=== PATIENT | male | born 2000 | race Caucasian/White ===

== ENCOUNTER → 2019-05-27 | Outpatient (CLI) | payer OTHER | LOC: M.ULTRA 05-26 08:00 | DX: K76.9 Liver disease, unspecified (principal); R10.12 Left upper quadrant pain; R10.13 Epigastric pain ==

== ENCOUNTER → 2019-06-10 | Outpatient (CLI) | payer OTHER ==
[2019-06-10 13:40] LABS: CREATININE 0.8 mg/dL (0.6-1.3)
== END ==
LOC: M.CT 12:48
PROVIDERS: Family Medicine
DX: K76.9 Liver disease, unspecified (principal); R93.5 Abnormal findings on diagnostic imaging of other abdominal regions, including retroperitoneum

== ENCOUNTER 2020-05-01 23:40 | Observation (INO) | payer OTHER ==
[~2020-05-01] VITALS: Ht 149.9 cm; Wt 58.1 kg
--- NOTE | ~2020-05-01 | OP ---
[address] [address] OPERATIVE REPORT Name: FABIEN KNAPP Room: [address] Gurinder Pearl#: [id number] Admission: 05/02/20 Attend Phys: Rich Melissa DO Discharge: Date of : 99 Report #: [id number] THIS REPORT FOR: //name// cc: Fantasma Aceves Vincent R. DO ~ THIS REPORT FOR: //name// CC: Rich Aceves DICTATED BY: Lilian Chacon DO DATE OF SERVICE: 05/02/2020 Lilian Chacon DO, PGY3 dictating for Rich Melissa DO. PREOPERATIVE DIAGNOSIS: Acute appendicitis. POSTOPERATIVE DIAGNOSIS: Acute appendicitis. PRIMARY SURGEON: Rich Melissa DO. CORPORATE LIBRARIAN: Lilian Chacon DO, PGY3. PROCEDURE PERFORMED: Laparoscopic appendectomy. ANESTHESIA: General and local. ESTIMATED BLOOD LOSS: 20. SPECIMEN: Appendix. COMPLICATIONS: None. INDICATIONS FOR PROCEDURE: The patient is a pleasant 19-year-old male that presented to the Emergency Department with acute onset periumbilical and right lower quadrant abdominal pain for several hours prior to presentation. Workup in the Emergency Department included a CT scan, which was positive for acute appendicitis. He also had a leukocytosis. He is afebrile and vitals were all within normal limits. It was recommended that he undergo laparoscopic appendectomy. The procedure, risks, benefits, possible complications to include bleeding, infection, injury to surrounding structures, need for open procedure, need for additional surgery, risk of anesthesia, and other risks of surgery were discussed with the patient in great detail. He voiced complete understanding and wished to proceed with surgery. [address] [address] OPERATIVE REPORT Name: FABIEN KNAPP Room: [address] Gurinder Pearl#: [id number] Admission: 05/02/20 Attend Phys: Rich Melissa, DO Discharge: Date of : 99 Report #: [id number] DESCRIPTION OF PROCEDURE: Informed consent was obtained. The patient was taken to the operating room and placed supine on the operating room table. General endotracheal anesthesia was induced without difficulty. SCDs were placed on bilateral lower extremities. Preoperative antibiotics were given. The abdomen was prepped and draped in standard sterile fashion. Timeout was performed to ensure correct patient and procedure. We began by making a vertical supraumbilical incision using a #11 blade scalpel. Incision was carried down through the subcutaneous tissues using a combination of blunt dissection and electrocautery. [employer] was used to assist in our dissection down to the level of fascia. Fascia was scored with electrocautery. Fascia was then elevated between 2 Kochers and further incised. The peritoneum was entered bluntly using hemostat. 0 Vicryl stay sutures were placed on either side of the fascial opening in a wayeee-pa-uyoue fashion. A 5 mm Cam trocar was inserted through the fascial opening. Abdomen was insufflated without difficulty. Laparoscopic camera was inserted and a sweep of the anterior abdominal contents was performed. There were no obvious abnormalities on our initial sweep of the abdominal contents. The patient was placed in the Trendelenburg position with the left side down. This still did not afford us a visual of the appendix. A suprapubic 5 mm trocar was inserted under direct visualization. A [place] was inserted and the right lower quadrant was explored. The appendix was in a retrocecal position. Once it was identified, it did appear to be acutely inflamed. Once the appendix was visualized, our left lower quadrant 12 mm trocar was then inserted under direct visualization. The Harmonic scalpel was used to come across the mesoappendix until we reached the base of the appendix. Once we reached the base of the appendix, a 45 mm purple load on the Endo-ANDRES stapler was used to come across the base of the appendix. The staple line was inspected to ensure hemostasis as well as the mesoappendix. Both appeared satisfactorily hemostatic. A 5 mm EndoCatch bag was inserted through our Cam trocar and the appendix was placed within it. The staple line and mesoappendix were reinspected to ensure hemostasis. One final sweep of the anterior abdominal contents was performed. There were no obvious abnormalities. The patient was flattened out. The left lower quadrant 12 mm trocar was removed and the fascia was closed using PMI closure device and 0 Vicryl suture. The abdomen was then desufflated without difficulty. A 5 mm suprapubic trocar was removed under direct visualization. The supraumbilical 5 mm Cam trocar was removed as well as the appendix within the EndoCatch bag. The fascia at the supraumbilical incision was closed using 0 Vicryl suture in a tsfoto-op-[id number] fashion. Approximately 30 mL of 0.5% Marcaine were used for local anesthesia at our three incision sites. The supraumbilical incision skin was closed using 4-0 Monocryl suture in a running subcuticular fashion. The suprapubic and left lower quadrant trocars were closed using 4-0 Monocryl suture in a simple interrupted and inverted fashion. Skin was cleansed and dried. Dermabond was applied to each incision. The patient tolerated the procedure very well. He [address] [address] OPERATIVE REPORT Name: FABIEN KNAPP Room: [address] Gurinder SquiresRReji#: [id number] Admission: 05/02/20 Attend Phys: Rich Melissa DO Discharge: Date of : 99 Report #: [id number] was allowed to awaken in the operating room, was transferred to the PACU in stable condition with plans to possibly discharge home later today. By: 1436 [id number] Melissa DO /nt
[2020-05-01 23:46] VITALS: BP 134/59
[2020-05-02 01:19] LABS: URINE BILIRUBIN NEGATIVE (Negative); URINE BLOOD NEGATIVE (Negative); URINE CLARITY CLEAR; URINE COLOR YELLOW; URINE GLUCOSE-RANDOM NEGATIVE (Negative); URINE KETONES NEGATIVE (Negative); URINE LEUKOCYTES-REFLEX NEGATIVE (Negative); URINE NITRITE-REFLEX NEGATIVE (Negative); URINE PROTEIN NEGATIVE (Negative); URINE UROBILINOGEN 0.2 E.U./dl (0.2-1.0)
[2020-05-02 01:20] LABS: ABSOLUTE EOSINOPHILS 0.1 thou/uL (0.0-0.7); ABSOLUTE LYMPHOCYTES 1.6 thou/uL (0.8-5.3); ABSOLUTE NEUTROPHILS 12.5 thou/uL (1.6-8.1); BASOPHILS 0.2 %; EOSINOPHILS 0.6 %; HEMATOCRIT 44.8 % (42.0-52.0); HEMOGLOBIN 15.2 gm/dL (14.0-18.0); LYMPHOCYTES 10.8 %; MCH 29.4 pg (26.0-34.0); MCHC 33.9 g/dL (28.0-37.0); MCV 86.8 fL (80.0-100.0); MONOCYTES 6.4 %; MPV 7.6 fl. (7.2-11.1); NUCLEATED RBCS 0 /100WBC; PLATELET COUNT* 283 thou/uL (150-400); RBC 5.16 mil/uL (4.50-6.00); RDW-CV 13.5 % (10.5-14.5); WBC 15.3 thou/uL (4.0-11.0)
[2020-05-02 01:25] LABS: CALCIUM 8.7 mg/dL (8.5-10.1); POTASSIUM 3.6 mmol/L (3.5-5.1)
[2020-05-02 01:35] LABS: ALBUMIN 4.3 g/dL (3.4-5.0); TOTAL BILIRUBIN 0.3 mg/dL (<0.1-1.0); TOTAL PROTEIN 7.8 g/dL (6.4-8.2)
[2020-05-02 04:04] VITALS: BP 103/44
[2020-05-02 04:05] VITALS: BP 125/59
--- NOTE | 2020-05-02 04:50 | NUR ---
ALERT AND ORIENTED X 4 MALE PATIENT TO BED 104 BY CART FROM ER IN STABLE CONDITION. ADMISSION ROUTINES IN PROGRESS. VITAL SIGNS STABLE. AFTER CALL FROM DR. ROBLES TO SAY SURGERY SCHEDULED AT 0600 PATIENT INSTRUCTED TO NOTIFY FAMILY WHICH HE DID. MOTHER WILL RETURN TO HOSPITAL PLANNING TO ARRIVE PRIOR TO SURGERY TIME. CONTINUE TO MONITOR.
[2020-05-02 05:02] VITALS: BP 125/59
[2020-05-02 08:00] VITALS: BP 104/53
[2020-05-02 12:00] VITALS: BP 94/37
[2020-05-02] MEDS ORDERED: OXYCODONE HCL 55 MG PO (12:25)
[2020-05-02 12:28] VITALS: BP 104/53
[2020-05-02] MEDS ORDERED: TYLOPHEN500 MG PO (12:36)
[2020-05-02] MEDS ORDERED: COLACE100 MG PO (12:37)
[2020-05-02] MEDS ORDERED: IBUPROFEN 400400 M2 PO (12:37)
[2020-05-02] MEDS ORDERED: MIRALAX17 G1 PO (12:38)
--- NOTE | 2020-05-02 18:20 | NUR ---
PATIENT DISCHARGED TO HOME. DISCHARGE PAPERS REVIEWED AND SIGNED WITH PATIENT AND HIS MOTHER. PRESCRIPTIONS AND INFORMATION SHEETS GIVEN. IV REMOVED. PATIENT DENIES ANY FURTHER NEEDS. PATIENT TAKEN BY WHEELCHAIR TO EXIT. LEFT WITH MOTHER.
--- NOTE | 2020-05-03 17:07 | PATH ---
[address] [address] PATHOLOGY RPT PROCEDURE Name: FABIEN ANTUNEZ Room: [address] MGonzalo#: [id number] Admission: 05/02/20 Date of : 99 Discharge: 05/02/20 Report #: [id number] Path Case #: [id number] [facility] Accession Number: [id number] . 01 Material submitted: . appendix - APPENDIX . 01 Clinical history: . Appendicitis . 02 Diagnosis: Appendix: - Acute appendicitis, periappendicitis and serositis. . (RACHEL:mml; 05/03/2020) [facility] 05/03/2020 1316 Local . 02 Electronically signed: . John Krueger MD, Pathologist NPI- [id number] . 01 Gross description: . The specimen is received in formalin, labeled "Fabien Antunez, appendix". Received is a vermiform appendix measuring 9.8 cm in length by up to 0.9 cm in diameter with a moderate amount of attached mesoappendix. The serosal surface is pale galan to pink-galan and glistening in appearance. The surgical margin is closed with a line of shona. The shona are removed and the new margin is inked black. Sectioning reveals a patent lumen filled with a slight amount of blood coagulum. The specimen is submitted representatively in cassettes A1 and A2, with the proximal margin and bisected tip submitted in cassette A1. (CAA; 05/02/2020) QAC/QAC 05/02/2020 1547 Local . 02 Pathologist provided ICD-10: K35.80, K65.8 . 02 CPT . 791873 Specimen Comment: A courtesy copy of this report has been sent to [phone], [phone] Specimen Comment: [phone] Specimen Comment: Report sent to / DR BEE Performed at: [address] [id number] MD Todd Bob MD Phone: [phone] Performed at: 02 [place] [address] PATHOLOGY RPT PROCEDURE Name: ANTUNEZFABIEN TRIVEDI Room: [address] Gurinder Pearl#: [id number] Admission: 05/02/20 Date of : 99 Discharge: 05/02/20 Report #: [id number] Path Case #: [id number] [facility] [address] REJI Ibanez [id number] MD John Krueger MD Phone: [phone]
== END 2020-05-02 18:20 | disposition home or self-care (01) ==
LOC: M.ERS 23:40 → M.ORTHSURG 05-02 02:46 → M.TBA-ER 05-02 02:46 → M.ORTHSURG 05-02 04:09
PROVIDERS: Personal Emergency Response Attendant; ADMIT Surgery; ATTEND Surgery
DX: K35.80 Unspecified acute appendicitis (principal)

== ENCOUNTER 2021-02-22 06:26 | Emergency (ER) | payer OTHER ==
[~2021-02-22] VITALS: Ht 149.9 cm; Wt 56.7 kg
[~2021-02-22 06:26] MED LIST: COLACE100 MG PO; IBUPROFEN 400400 M2 PO; MIRALAX17 G1 PO; OXYCODONE HCL 55 MG PO; TYLOPHEN500 MG PO
[2021-02-22] MEDS ORDERED: HYDROCODON-ACE1 EAC7 PO (07:15)
[2021-02-22] MEDS ORDERED: FLEXERIL PO (07:15)
[2021-02-22] MEDS ORDERED: IBUPROFEN 800800 M1 PO (07:15)
[2021-02-22 07:24] VITALS: BP 147/87
== END 2021-02-22 07:25 | disposition home or self-care (01) ==
LOC: M.ERS 06:26
DX: S46.811A Strain of other muscles, fascia and tendons at shoulder and upper arm level, right arm, initial encounter (principal); X50.9XXA Other and unspecified overexertion or strenuous movements or postures, initial encounter; Y93.89 Activity, other specified; Y92.89 Other specified places as the place of occurrence of the external cause; Y99.8 Other external cause status